=== PATIENT | female | born 1955 | race African-American/Black ===

== ENCOUNTER 2024-10-20 12:53 | Emergency (ER) | payer OTHER ==
[~2024-10-20] VITALS: Ht 167.6 cm; Wt 67.0 kg
[2024-10-20 13:14] VITALS: TEMP 37.4; O2SAT 100
[2024-10-20] MEDS ORDERED: AZIT250T MT (15:27)
[2024-10-20 15:37] VITALS: BP 148/84; PULSE 89; RESP 17; O2SAT 99
== END 2024-10-20 15:41 | disposition home or self-care (01) ==
LOC: ER 12:53
DX: J01.90 Acute sinusitis, unspecified (principal); I10 Essential (primary) hypertension; Z98.51 Tubal ligation status; Z88.0 Allergy status to penicillin
CPT/HCPCS: 71045; 99283